=== PATIENT | female | born 1965 | race Caucasian/White ===

== ENCOUNTER 2018-07-08 15:58 | Emergency (ER) | payer OTHER, SELFPAY ==
[2018-07-08 16:03] VITALS: BP 115/54; PULSE 58; RESP 12; TEMP 36.2; O2SAT 99
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
[2018-07-08] MEDS: Acetaminophen 325 MG TAB 650 MG PO (16:25)
[2018-07-08] MEDS: Ibuprofen 600 MG TAB PO (16:25)
--- NOTE | 2018-07-08 16:26 | NUR.NOTE ---
patient medicated per MD order Nursing Note:
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
--- NOTE | 2018-07-08 17:11 | DI.VRAD_ITS ---
EXAM: XR Left Tibia and Fibula, 2 Views EXAM DATE/TIME: 07/08/2018 4:45 PM CLINICAL HISTORY: 52 years old, female; Injury or trauma; Fall; Initial encounter; Sprain or strain; Lower leg; Left; Injury details: Pain prox tib/fib, ski injury, ? boot top FX TECHNIQUE: XR Left tibia and fibula 2 views COMPARISON: No relevant prior studies available. FINDINGS: Bones/joints: Minimally displaced fracture in the lateral aspect of the proximal tibia seen on the AP view. This may represent avulsion of the lateral collateral ligament. Consider CT for further evaluation. Soft tissues: Soft tissue swelling of the knee IMPRESSION: Minimally displaced fracture in the lateral aspect of the proximal tibia seen on the AP view. This may represent avulsion of the lateral collateral ligament. Consider CT for further evaluation. Dictated and Authenticated by: Darrion Shen MD. Ordering:NAZARIO Sullivan MD
--- NOTE | 2018-07-08 17:21 | DI.CT_ITS ---
SYMPTOMS/DIAGNOSIS: FX ON X-RAY, PROX LAT TIB CT OF THE LEFT KNEE: Multiple contiguous axial images of the left knee were obtained. Sagittal and coronal reformatted images were evaluated on the Siem[employer] workstation. There is a comminuted mildly displaced fracture involving the lateral aspect of the proximal tibia consistent with a Segond fracture. There is also a nondisplaced fracture involving the head and proximal metaphysis of the left fibula. No other fractures or dislocation is seen. There is a moderate size joint effusion. IMPRESSION: 1. Fracture involving the lateral aspect of the proximal tibia consistent with a Segond fracture. These are highly associated with anterior cruciate ligament tears. 2. Nondisplaced fracture involving the proximal fibula.
[2018-07-08 18:30] VITALS: BP 104/64; PULSE 55; RESP 14; TEMP 36.6; O2SAT 99
--- NOTE | 2018-07-08 18:34 | NUR.NOTE ---
patient returned from CT, awaiting results Nursing Note:
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
== END 2018-07-08 19:16 | disposition home or self-care (01) ==
PROVIDERS: Emergency Provider Student in an Organized Health Care Education/Training Program
DX: S82.142A Displaced bicondylar fracture of left tibia, initial encounter for closed fracture (principal); S82.435A Nondisplaced oblique fracture of shaft of left fibula, initial encounter for closed fracture; V00.321A Fall from snow-skis, initial encounter; Y93.23 Activity, snow (alpine) (downhill) skiing, snowboarding, sledding, tobogganing and snow tubing
CPT/HCPCS: 27530; 27780; 73590; 73700; E0114; L1830